=== PATIENT | male | born 1990 | race American Indian/Alaskan Native ===

== ENCOUNTER 2020-04-06 15:00 | Emergency (ER) | payer SELFPAY ==
[2020-04-06 15:49] VITALS: BP 132/84
--- NOTE | 2020-04-06 19:21 | Emergency Department Report ---
Chief Complaint: Urogenital-Male Stated Complaint: MENTAL HEALTH - HPI History of Present Illness: 29-year-old -[place] male presents to the emergency room for he does not know why. Patient had to call his caregiver to ask what he is here for. Caregiver states that she wanted him checked for STDs. Patient denies any pain. Patient denies any fever chills no nausea no vomiting. - Exam Vital Signs: Vital Signs 04/06/20 15:48 Temperature 98.3 F Pulse Rate 82 Respiratory 16 Rate Blood Pressure 132/84 O2 Sat by Pulse 98 Oximetry Physical Exam: Alert and oriented x3 no acute distress nontoxic in appearance No difficulties in ambulating. Nonlabored breathing no accessory muscles use MSE screening note: Focused history and physical exam performed. Due to findings the following was ordered: 29-year-old -[place] male presents to the emergency room for he does not know why. Patient had to call his caregiver to ask what he is here for. Caregiver states that she wanted him checked for STDs. Patient denies any pain. Patient denies any fever chills no nausea no vomiting. Patient denies any suicidal homicidal ideation. Denies any hallucination. Discussed with patient he needs to [facility] at the [facility] in his mental health provider. ED Disposition for MSE Disposition: Z MED SCREENING EXAM-LEFT Is pt being admited?: No Does the pt Need Aspirin: No Condition: Stable Additional Instructions: Patient needs to follow-up at the health department or primary care provider for STD evaluation and treatment. Patient is to follow-up with his mental health provider. Referrals: PRIMARY CARE, [Primary Care Provider] - 3-5 Days [facility] [Outside] - 3-5 Days [facility] [Outside] - 3-5 Days
== END 2020-04-06 19:54 | disposition left against medical advice (07) ==
LOC: ED 15:00
DX: Z53.21 Procedure and treatment not carried out due to patient leaving prior to being seen by health care provider (principal)